=== PATIENT | male | born 1975 | race Caucasian/White ===

== ENCOUNTER 2016-04-05 07:28 | Inpatient (IN) | payer BC ==
[~2016-04-05] VITALS: Ht 188 cm; Wt 111.7 kg
[2016-04-05] MEDS ORDERED: CHLORDIAZEPOXIDE 25 MG CAP ONE (08:15)
[2016-04-05] MEDS ORDERED: SODIUM CHLORIDE 0.9% 1,000 ML ONE (08:15)
[2016-04-05] MEDS ORDERED: LORAZEPAM 2 MG/ML VIAL ONE ×2 (08:15→09:13)
[2016-04-05] MEDS ORDERED: MULTIVITS ADULT INJ 10 ML, THIAMINE 100 MG, FOLIC ACID INJ 1 MG in SODIUM CHLORIDE 0.9%... IV ONE ×3 (08:20)
[2016-04-05] MEDS ORDERED: OPTIRAY 350 100 ML VIAL HMH IV ONE (10:24)
[2016-04-05] MEDS ORDERED: ONDANSETRON 4 MG VIAL IV PRN (10:25)
[2016-04-05] MEDS: FOLIC ACID 1 MG TAB PO SCH (12:42)
[2016-04-05] MEDS: THIAMINE 100 MG TAB PO SCH (12:42)
[2016-04-05] MEDS: SODIUM CHLORIDE 0.9% 1,000 ML IV SCH (12:42)
[2016-04-05] MEDS: FLINTSTONES COMPLETE PO SCH (12:42)
[2016-04-05 12:47] VITALS: BP_SYST 152; BP_SYST 154; RESP 20; TEMP 98.3
[2016-04-05 12:48] VITALS: Ht 188 cm; Wt 111.7 kg
[2016-04-05] MEDS: LORAZEPAM 2 MG/ML VIAL IV PRN ×6 (13:07→23:49)
[2016-04-05] MEDS ORDERED: Flu Vaccine Quadrivalent 60 MCG/0.5 ML IM.VACC ONE (14:45)
[2016-04-05] MEDS ORDERED: SODIUM PHOSPHATE IV ONE (15:15)
[2016-04-05] MEDS ORDERED: SODIUM CHLORIDE IV ONE (15:15)
[2016-04-05 16:08] VITALS: BP_SYST 134; RESP 21; TEMP 98.8
[2016-04-05 19:20] VITALS: BP_SYST 132; RESP 17; TEMP 98.6
[2016-04-06] VITALS (11 sets, daily range): BP systolic 121–161; RESP 18–22; TEMP 98.7–100.4
[2016-04-06] MEDS: SODIUM CHLORIDE 0.9% 1,000 ML IV SCH (03:23)
[2016-04-06] MEDS ORDERED: POTASSIUM PHOSPHATE 45 MMOL in SODIUM CHLORIDE 0.9% 500 ML IV ONE (04:55)
[2016-04-06] MEDS ORDERED: POTASSIUM PHOSPHATE 30 MMOL in SODIUM CHLORIDE 0.9% 250 ML IV ONE (05:00)
[2016-04-06] MEDS: THIAMINE 100 MG TAB PO SCH (08:02)
[2016-04-06] MEDS: FLINTSTONES COMPLETE PO SCH (08:02)
[2016-04-06] MEDS: FOLIC ACID 1 MG TAB PO SCH (08:02)
[2016-04-06] MEDS ORDERED: ONDANSETRON 4 MG VIAL IV PUSH PRN (09:20)
[2016-04-06] MEDS: LACTULOSE SOLN 20GM/30ML UDC PO SCH ×2 (09:55→22:10)
[2016-04-06] MEDS: PANTOPRAZOLE 40 MG VIAL IV SCH (09:55)
[2016-04-06] MEDS: DEXTROSE 5% SALINE 0.9% 1,000 ML IV SCH ×2 (09:55→20:07)
[2016-04-06] MEDS: OMNIPAQUE 240 MG/ML, 50 ML PO SCH ×2 (10:50→12:32)
[2016-04-06] MEDS: LORAZEPAM 2 MG/ML VIAL IV PRN (17:48)
[2016-04-07] VITALS (9 sets, daily range): BP systolic 128–158; RESP 18–22; TEMP 98.1–98.8
[2016-04-07] MEDS: DEXTROSE 5% SALINE 0.9% 1,000 ML IV SCH ×2 (05:26→15:54)
[2016-04-07] MEDS: FOLIC ACID 1 MG TAB PO SCH (08:04)
[2016-04-07] MEDS: FLINTSTONES COMPLETE PO SCH (08:04)
[2016-04-07] MEDS: PANTOPRAZOLE 40 MG VIAL IV SCH (08:04)
[2016-04-07] MEDS: THIAMINE 100 MG TAB PO SCH (08:04)
[2016-04-07] MEDS: LACTULOSE SOLN 20GM/30ML UDC PO SCH ×3 (08:04→22:10)
[2016-04-07] MEDS: KCL CR 20 MEQ TAB PO SCH ×2 (08:57→22:10)
[2016-04-07] MEDS ORDERED: CHLORDIAZEPOXIDE 25 MG CAP ONE (22:04)
[2016-04-07] MEDS: CHLORDIAZEPOXIDE 25 MG CAP PO PRN (22:11)
[2016-04-08] MEDS: DEXTROSE 5% SALINE 0.9% 1,000 ML IV SCH (01:34)
[2016-04-08 03:26] VITALS: BP_SYST 138; RESP 18; TEMP 99.2
[2016-04-08] MEDS: PANTOPRAZOLE 40 MG VIAL IV SCH (08:30)
[2016-04-08] MEDS: THIAMINE 100 MG TAB PO SCH (08:30)
[2016-04-08] MEDS: FLINTSTONES COMPLETE PO SCH (08:30)
[2016-04-08] MEDS: LACTULOSE SOLN 20GM/30ML UDC PO SCH ×3 (08:31→20:43)
[2016-04-08] MEDS: FOLIC ACID 1 MG TAB PO SCH (08:31)
[2016-04-08] MEDS: KCL CR 20 MEQ TAB PO SCH ×2 (08:31→20:44)
[2016-04-08 08:39] VITALS: BP_SYST 134; RESP 18; TEMP 99.4
[2016-04-08] MEDS: Propranolol 10 MG TAB PO SCH ×3 (10:46→20:43)
[2016-04-08 11:29] VITALS: BP_SYST 128; RESP 17; TEMP 97.8
[2016-04-08 13:47] VITALS: BP_SYST 131; RESP 20; TEMP 98.2
[2016-04-08 15:09] VITALS: BP_SYST 125; RESP 20; TEMP 98.3
[2016-04-08] MEDS ORDERED: MISSING DOSE XX ONE (16:20)
[2016-04-08] MEDS: CHLORDIAZEPOXIDE 25 MG CAP PO PRN ×2 (17:16→21:28)
[2016-04-08 20:21] VITALS: BP_SYST 128; RESP 20; TEMP 98.4
[2016-04-09] VITALS (8 sets, daily range): BP systolic 124–142; RESP 20; TEMP 97.3–98.6
[2016-04-09] MEDS ORDERED: PANTOPRAZOLE 40 MG TAB PO SCH ×2 (07:00)
[2016-04-09] MEDS: Propranolol 10 MG TAB PO SCH (09:17)
[2016-04-09] MEDS: THIAMINE 100 MG TAB PO SCH (09:17)
[2016-04-09] MEDS: KCL CR 20 MEQ TAB PO SCH (09:17)
[2016-04-09] MEDS: FOLIC ACID 1 MG TAB PO SCH (09:17)
[2016-04-09] MEDS: FLINTSTONES COMPLETE PO SCH (09:17)
[2016-04-09] MEDS: LACTULOSE SOLN 20GM/30ML UDC PO SCH (09:17)
[2016-04-09] MEDS ORDERED: MISSING DOSE XX ONE ×2 (15:25→15:50)
== END 2016-04-09 15:55 | disposition home or self-care (01) | DRG 432 ==
LOC: ENRESERVTM → ENRESERVDT → ER 07:28 → EMR 10:23 → PCU2 12:21 → PCU 23:11 → OBSVTOIN 04-07 08:53 → ENPENDDIS 04-07 08:53 → 4NT 04-08 13:32
PROVIDERS: ADMIT Hospitalist; ATTEND Hospitalist
DX: K70.10 Alcoholic hepatitis without ascites (principal); K85.90 Acute pancreatitis without necrosis or infection, unspecified; G93.41 Metabolic encephalopathy; D61.818 Other pancytopenia; E72.20 Disorder of urea cycle metabolism, unspecified; E87.1 Hypo-osmolality and hyponatremia; E66.01 Morbid (severe) obesity due to excess calories; F10.20 Alcohol dependence, uncomplicated; Y90.0 Blood alcohol level of less than 20 mg/100 ml; E86.0 Dehydration; Z68.31 Body mass index [BMI] 31.0-31.9, adult; Z23 Encounter for immunization
CPT/HCPCS: 36415; 74177; 80053; 80074; 80307; 80320; 80329; 81001; 82140; 82728; 83540; 83690; 83735; 84100; 84466; 85025; 85610; 87040; 87088; 96361; 96365; 96375; 96376; 99219; 99233; 99238; 99255